=== PATIENT | female | born 1940 | race Hispanic/Latino ===

== ENCOUNTER 2023-09-10 20:56 | Emergency (ER) | payer MEDICARE ==
[~2023-09-10] VITALS: Ht 144.8 cm; Wt 55.3 kg
[2023-09-10] MEDS ORDERED: IBUPROFEN200 MG PO (21:15)
[2023-09-10] MEDS ORDERED: TYLENOL325 MG PO (21:15)
[2023-09-10] MEDS ORDERED: ACETAMINOPHEN 325 MG TAB PO ONE (21:30)
[2023-09-10] MEDS ORDERED: ACETAMINOPHEN 325 MG TAB ONE (21:30)
[2023-09-10] MEDS ORDERED: BACITRACIN ZINC 0.9GM TP ONE (22:29)
[2023-09-10] MEDS ORDERED: MUPIROCIN 2% OINT 22 GM TUBE TOP ONE (22:30)
[2023-09-10] MEDS ORDERED: IBUPROFEN 600 MG TAB PO ONE (23:45)
[2023-09-10] MEDS ORDERED: CLONIDINE HCL 0.1 MG TAB PO ONE (23:45)
[2023-09-11] MEDS ORDERED: CLONIDINE HCL 0.2 MG TAB ONE (01:01)
[2023-09-11] MEDS ORDERED: IBUPROFEN 600 MG TAB ONE (01:02)
[2023-09-11] MEDS ORDERED: CLONIDINE HCL 0.1 MG TAB PO ONE (01:30)
[2023-09-11 01:33] VITALS: BP 149/90; PULSE 82; RESP 18; TEMP 98.9; O2SAT 100
[2023-09-11] MEDS ORDERED: TYLENOL325 MG PO (01:39)
[2023-09-11] MEDS ORDERED: IBUPROFEN200 MG PO (01:39)
== END 2023-09-11 01:33 | disposition home or self-care (01) ==
LOC: FSED 21:11
DX: S01.01XA Laceration without foreign body of scalp, initial encounter (principal); S42.212A Unspecified displaced fracture of surgical neck of left humerus, initial encounter for closed fracture; S50.02XA Contusion of left elbow, initial encounter; M25.512 Pain in left shoulder; W01.0XXA Fall on same level from slipping, tripping and stumbling without subsequent striking against object, initial encounter; Y93.01 Activity, walking, marching and hiking; Y92.89 Other specified places as the place of occurrence of the external cause; I16.0 Hypertensive urgency; I10 Essential (primary) hypertension
CPT/HCPCS: 70450; 99284

== ENCOUNTER 2025-03-28 22:38 | Emergency (ER) | payer MEDICARE ==
[~2025-03-28] VITALS: Ht 146.1 cm; Wt 54.9 kg
[~2025-03-28 22:38] MED LIST: CEPHALEXIN500 MG PO; CITALOPRAM HBR30 MG; DONEPEZIL HCL10 MG; IBUPROFEN200 MG PO; TYLENOL325 MG PO
[2025-03-28 22:41] VITALS: PULSE 85; RESP 18; TEMP 98
[2025-03-28] MEDS: ACETAMINOPHEN 325 MG TAB PO ONE (23:19)
[2025-03-28] MEDS: DIPHTH,PERTUSS(ACELL),TET VAC 0.5 ML SYRINGE IM ONE (23:45)
[2025-03-28] MEDS: TETANUS/DIPHTHERIA TOX ADULT 0.5 ML SYR IM ONE (23:45)
[2025-03-29 00:40] VITALS: BP 163/74; PULSE 84; RESP 18; TEMP 98; O2SAT 98
== END 2025-03-29 00:40 | disposition home or self-care (01) ==
LOC: FSED 22:41
DX: S00.83XA Contusion of other part of head, initial encounter (principal); S80.02XA Contusion of left knee, initial encounter; S90.32XA Contusion of left foot, initial encounter; S63.592A Other specified sprain of left wrist, initial encounter; W18.39XA Other fall on same level, initial encounter; Y93.01 Activity, walking, marching and hiking; Y92.89 Other specified places as the place of occurrence of the external cause; I10 Essential (primary) hypertension; H40.9 Unspecified glaucoma
CPT/HCPCS: 70450; 72125; 90471; 90714; 96372; 99283